=== PATIENT | female | born 1985 | race Hispanic/Latino ===

== ENCOUNTER 2023-10-19 01:12 | Observation (INO) | payer BC ==
[~2023-10-19] VITALS: Ht 149.9 cm; Wt 82.1 kg
[2023-10-19] VITALS (7 sets, daily range): BP systolic 121; BP diastolic 68; PULSE 65–88; RESP 18–32; O2SAT 94–100
[2023-10-19] MEDS: 0.9%NACL 1000ML 1,000 ML IV ONE (01:27)
[2023-10-19] MEDS: DEXAMETHASONE SOD PHOSPHATE 4 MG/ML 1ML VIAL IV ONE (01:27)
[2023-10-19] MEDS: NITROGLYCERIN 1GM OINT 1 INCH/1GM TD ONE (01:30)
[2023-10-19] MEDS: IPRATROPIUM/ALBUTEROL SULFATE 3 ML SOLUTION IH ONE ×2 (01:30)
[2023-10-19] MEDS: ASPIRIN 325MG TAB PO ONE (01:30)
[2023-10-19] MEDS: ENOXAPARIN SODIUM 80 MG/0.8 ML SQ ONE (01:30)
[2023-10-19 01:33] LABS: BASOPHILS # (AUTO) 0.04 K/uL (0.00-0.20); BASOPHILS % (AUTO) 0.4 % (0.0-5.0); EOSINOPHILS # (AUTO) 0.57 K/uL (0.00-0.70); EOSINOPHILS % (AUTO) 5.7 % (0.0-8.0); HEMATOCRIT 36.7 % (36-48); IMMATURE GRANULOCYTE ABSOLUTE 0.02 K/uL (0-1); LYMPHOCYTES # (AUTO) 3.9 K/uL (1.0-4.8); LYMPHOCYTES % (AUTO) 39.6 % (21.0-51.0); MEAN CORPUSCULAR HEMOGLOBIN 28.4 pg (27.0-33.0); MEAN CORPUSCULAR HGB CONC 34.1 g/dL (32.0-36.0); MEAN CORPUSCULAR VOLUME 83.4 fL (79-99); MONOCYTES # (AUTO) 0.5 K/uL (0.1-1.0); NEUTROPHILS # (AUTO) 4.9 K/uL (1.8-7.7); NEUTROPHILS % (AUTO) 49.1 % (40.0-77.0); PLATELET COUNT (AUTO) 402 K/uL (130-400); RED CELL DISTRIBUTION WIDTH 12.7 % (11.0-15.5)
[2023-10-19 01:35] LABS: ABG HCO3 18.7 mmol/L (21.0-28.0); ABG OXYGEN SATURATION 98.1 % (95.0-99.0); ABG PCO2 23 mmHg (32-45); ABG PH 7.525 (7.350-7.450); PO2, ARTERIAL BG 98.1 mmHg (83.0-108.0); VENT MODE, BG ROOM AIR (ROOM AIR)
[2023-10-19 01:44] LABS: CREATININE 0.9 mg/dL (0.5-1.5); POTASSIUM 3.6 mmol/L (3.5-5.1)
[2023-10-19 01:48] LABS: MAGNESIUM 2.2 mg/dL (1.80-2.40)
[2023-10-19] MEDS: MAGNESIUM 2GM PREMIX 50ML 50 ML IV SCH (02:15)
[2023-10-19 02:32] LABS: COVID19 (SARS ANTIGEN RAPID) PRESUMPTIVE NEGATIVE (NEGATIVE); INFLUENZA TYPE A Negative For Type A (NEGATIVE); INFLUENZA TYPE B Negative For Type B (NEGATIVE)
[2023-10-19] MEDS: PROMETHAZINE HCL 25 MG/ML 1ML AMPULE IM ONE (03:59)
[2023-10-19] MEDS ORDERED: BENZONATATE 100 MG CAPSULE PO PRN (04:00)
[2023-10-19] MEDS ORDERED: GUAIFENESIN-DM 200/20 MG 10 ML PO PRN (04:30)
[2023-10-19] MEDS ORDERED: DEXAMETHASONE SOD PHOSPHATE 4 MG/ML 1ML VIAL IV SCH (04:30)
[2023-10-19] MEDS ORDERED: ALPRAZOLAM 0.25 MG TABLET PO PRN (04:30)
[2023-10-19] MEDS ORDERED: ONDANSETRON 4MG INJ IV PRN (04:30)
[2023-10-19] MEDS ORDERED: ACETAMINOPHEN 325 MG TAB PO PRN ×2 (04:30)
[2023-10-19] MEDS: BENZONATATE 100 MG CAPSULE PO ONE (04:31)
[2023-10-19] MEDS: IPRATROPIUM/ALBUTEROL SULFATE 3 ML SOLUTION IH SCH (06:31)
[2023-10-19] MEDS: ENOXAPARIN SODIUM 40 MG/0.4 ML SYRINGE SQ SCH (08:25)
[2023-10-19] MEDS: FAMOTIDINE 20MG TAB PO SCH (08:25)
[2023-10-20] MEDS ORDERED: DEXAMETHASONE SOD PHOSPHATE 4 MG/ML 1ML VIAL IV SCH (04:30)
== END 2023-10-19 12:28 | disposition left against medical advice (07) ==
LOC: EDH 01:12 → EDHIP 04:12
PROVIDERS: ADMIT Hospitalist; ATTEND Hospitalist
DX: J45.901 Unspecified asthma with (acute) exacerbation (principal); Z20.822 Contact with and (suspected) exposure to COVID-19; E66.01 Morbid (severe) obesity due to excess calories; D75.839 Thrombocytosis, unspecified; Z68.36 Body mass index [BMI] 36.0-36.9, adult
CPT/HCPCS: 96372; 96361; 96365; 96375; 99285; 82550; 83735; 84484 ×2; 80048; 82803; 85025; 85378; 87880; 87804 ×2; 83605; 87426; 36415; 71045; 93005; 36600; 94640 ×5; 94664; G0378 ×7; J3475; J7030; J2550; J1650 ×2; J1100